=== PATIENT | male | born 1950 | race Caucasian/White ===

== ENCOUNTER 2018-11-06 11:55 | Emergency (ER) | payer MEDICARE ==
[~2018-11-06] VITALS: Ht 177.8 cm; Wt 100.0 kg
[2018-11-06 11:58] VITALS: BP 143/103
[2018-11-07] MEDS ORDERED: BUME1TAB4 PO (16:39)
[2018-11-07] MEDS ORDERED: METO-411 PO (16:39)
[2018-11-07] MEDS ORDERED: LOSA25TA41 PO (16:39)
[2018-11-07] MEDS ORDERED: CALC-1051 PO (16:39)
[2018-11-07] MEDS ORDERED: LIDO700A47 TD (16:39)
[2018-11-07] MEDS ORDERED: APIX5TAB3 PO (16:39)
[2018-11-07] MEDS ORDERED: AMIO200T27 PO (16:39)
[2018-11-07] MEDS ORDERED: POLY17PO10 PO (16:39)
[2018-11-07] MEDS ORDERED: CARB15DR82 EACHEYE (16:39)
[2018-11-07] MEDS ORDERED: ATOR40TA71 PO (16:39)
[2018-11-07] MEDS ORDERED: GABA-532 PO (16:39)
== END 2018-11-06 20:07 ==
LOC: ER 11:56
DX: F10.129 Alcohol abuse with intoxication, unspecified (principal); I10 Essential (primary) hypertension; Z56.0 Unemployment, unspecified; Z98.890 Other specified postprocedural states; V49.88XA Car occupant (driver) (passenger) injured in other specified transport accidents, initial encounter; Y93.89 Activity, other specified; Y92.413 State road as the place of occurrence of the external cause; Y99.9 Unspecified external cause status; Y90.9 Presence of alcohol in blood, level not specified
CPT/HCPCS: 99284

== ENCOUNTER 2018-11-07 11:03 | Inpatient (IN) | payer MEDICARE, OTHER | END 2018-11-13 11:29 | disposition home or self-care (01) | LOC: ER 11:03 → PCU 3S 11-08 14:40 → ED HOLD 15:09 | DX: L03.311 Cellulitis of abdominal wall (principal); F10.239 Alcohol dependence with withdrawal, unspecified; I48.91 Unspecified atrial fibrillation; S00.12XA Contusion of left eyelid and periocular area, initial encounter ==